=== PATIENT | female | born 1965 | race Hispanic/Latino ===

== ENCOUNTER → 2020-04-19 | Day surgery (SDC) | payer MEDICARE ==
[~2020-04-19] VITALS: Ht 152.4 cm; Wt 77.1 kg
[~2020-04-19] MED LIST: ALEN70TA65 PO; DEXL60CA2 PO; DILAUDID ONE; DIPRIVAN IV ONE; ETAN50PE3 SQ; FOLIC ACID; GABA800T5 PO; HYDR-3105 PO; LACTATED RINGERS 1,000 ML IV SCH; LASIX ONE; LISI1TAB39 PO; LUBI24CA7 PO; MIRA50TA PO; MORPHINE SULFATE ONE; NORCO 7.5MG PO ONE; NS 1000ML 1,000 ML IV SCH; ONDA-87 PO; PILO5TAB12 PO; PROM25TA10 PO; SUBLIMAZE ONE; TAMS-14 PO; TIZA4TAB2 PO; TOPI25TA8 PO; TRAM50TA PO; TRAZ-163 PO; VALA500T8 PO; VERSED ONE
[2020-04-19 08:51] VITALS: BP 95/68
[2020-04-19 10:25] LABS: BASOPHIL % 0.4 % (0.0-0.2); EOSINOPHIL # 0.1 10^3/uL (0.0-0.3); EOSINOPHIL % 1.6 % (0.0-5.0); LYMPHOCYTES # 3.19 10^3/uL1 (3.0-9.5); LYMPHOCYTES % 45.8 % (24.0-44.0); MEAN CORP HGB 30.8 pg (26-34); MONOCYTES # 0.6 10^3/uL (0.0-0.5); MONOCYTES % 7.9 % (5.0-12.0); NEUTROPHIL # 3.1 10^3/uL; NEUTROPHILS % 44.2 % (41.0-85.0); PLATELET COUNT 219 10^3/uL (150-400); RED CELL DISTRIBUTION WIDTH 11.9 % (11.5-14.5)
[2020-04-19 10:39] LABS: CALCIUM 9.3 mg/dL (8.4-10.5); CARBON DIOXIDE 25.3 mmol/L (20.0-32)
[2020-04-19 12:17] VITALS: BP 166/97
--- NOTE | 2020-04-19 12:21 | OPH ---
DATE OF SURGERY: 04/19/2020 PREOPERATIVE DIAGNOSIS: Right renal calculus. FINAL DIAGNOSIS: Right renal calculus. PROCEDURE: Right ESWL. DESCRIPTION OF PROCEDURE: The patient was brought to the lithotripsy room in supine position. A preop renal ultrasound was initially performed which revealed a calculus in the middle of the right kidney measuring 6.7 mm in diameter. There is no evidence of hydronephrosis, no cysts or masses noted. After the patient was given an LMA general anesthesia and after localization of the stone, we used an ultrasound, a right ESWL was then performed using a Dornier Compact Delta II lithotripter. A total of 1500 shockwaves were delivered to the stones in the right kidney under ultrasound guidance. After fragmentation of the stone as noted in the ultrasound, the procedure was terminated. The patient was then awakened, was transferred to the recovery room in stable condition. Talib Villatoro MD DR: CINDY/tito JOB# [id number]
[2020-04-19 12:27] VITALS: BP 162/103
[2020-04-19 12:36] VITALS: BP 134/103
[2020-04-19 12:37] VITALS: BP 149/89
[2020-04-19 13:00] VITALS: BP 110/73
--- NOTE | 2020-04-19 14:50 | PCM.EKG ---
[facility] Test Date: 2020-04-19 Test Time: 11:14:53 Pat Name: PARVEEN HILARIO Department: Room: Gender: F Distribution Engineer: FILOMENA CARRIZALES : 1965 Requested By: JASON KAUR Order Number: [id number] Reading MD: Measurements Intervals [place] Rate: 53 P: 43 MS: 130 QRS: 22 QRSD: 76 T: 34 QT: 462 QTc: 433 Interpretive Statements Sinus bradycardia No previous ECG available for comparison Please click the below link to view image of tracing.
== END | disposition home or self-care (01) ==
LOC: SDC 08:05 → EDSEX 08:05
PROVIDERS: ATTEND Urology
DX: N20.0 Calculus of kidney (principal); I10 Essential (primary) hypertension; R39.14 Feeling of incomplete bladder emptying; N39.3 Stress incontinence (female) (male); M19.90 Unspecified osteoarthritis, unspecified site; F41.9 Anxiety disorder, unspecified; F32.9 Major depressive disorder, single episode, unspecified; Z90.49 Acquired absence of other specified parts of digestive tract; Z90.710 Acquired absence of both cervix and uterus; Z98.890 Other specified postprocedural states; Z88.8 Allergy status to other drugs, medicaments and biological substances; Z79.899 Other long term (current) drug therapy; Z72.89 Other problems related to lifestyle; Z82.61 Family history of arthritis; Z83.3 Family history of diabetes mellitus; Z80.6 Family history of leukemia; Z79.02 Long term (current) use of antithrombotics/antiplatelets
CPT/HCPCS: 36415; 50590; 80048; 85025; 85610; 85730; 93005; J1170; J2250; J3010; J3490; J1940

== ENCOUNTER 2020-12-27 08:39 | Day surgery (SDC) | payer MEDICARE, MEDICAID ==
[~2020-12-27] VITALS: Ht 154.9 cm; Wt 77.1 kg
[2020-12-27] VITALS (11 sets, daily range): BP systolic 109–200; BP diastolic 69–133
[~2020-12-27 08:39] MED LIST changes: -ALEN70TA65 PO; +ALEN70TA76 PO; +DECADRON ONE; -DILAUDID ONE; +ESCI20TA8 PO; +LACTATED RINGERS 1,000 ML ONE; +LASIX IV ONE; -MORPHINE SULFATE ONE; -NORCO 7.5MG PO ONE; -NS 1000ML 1,000 ML IV SCH; +NS 1000ML 1,000 ML ONE; +OXYB5TAB10 PO; +TORADOL ONE; -VERSED ONE; +ZOFRAN ONE; +ZOLP5TAB PO
[2020-12-27 09:20] LABS: BASOPHIL % 0.4 % (0.0-0.2); EOSINOPHIL # 0.1 10^3/uL (0.0-0.2); EOSINOPHIL % 1.1 % (0.0-5.0); LYMPHOCYTES # 1.62 10^3/uL1 (1.0-4.8); LYMPHOCYTES % 29.1 % (24.0-44.0); MEAN CORP HGB 32.1 pg (26-34); MONOCYTES # 0.4 10^3/uL (0.3-0.8); MONOCYTES % 7.5 % (5.0-12.0); NEUTROPHIL # 3.5 10^3/uL (1.8-7.7); NEUTROPHILS % 61.9 % (41.0-85.0); PLATELET COUNT 193 10^3/uL (150-400); RED CELL DISTRIBUTION WIDTH 12.6 % (11.5-14.5)
[2020-12-27 09:39] LABS: CALCIUM 8.5 mg/dL (8.4-10.5); CARBON DIOXIDE 25.8 mmol/L (20.0-32)
[2020-12-27] MEDS ORDERED: DILAUDID ONE ×3 (10:43→13:50)
[2020-12-27] MEDS ORDERED: DILAUDID IV ONE (10:45)
[2020-12-27] MEDS ORDERED: TRAM50TA PO (12:51)
[2020-12-27] MEDS ORDERED: TAMS-14 PO (12:51)
[2020-12-27] MEDS ORDERED: DILAUDID IV PRN ×2 (13:00→14:00)
[2020-12-27] MEDS ORDERED: LACTATED RINGERS 1,000 ML IV SCH (13:00)
--- NOTE | 2020-12-27 13:29 | OPH ---
DATE OF SURGERY: 12/27/2020 DICTATOR NAME: Talib Villatoro MD PREOPERATIVE DIAGNOSIS: Right renal calculi. FINAL DIAGNOSIS: Right renal calculi. PROCEDURE: Right ESWL. DESCRIPTION OF PROCEDURE: The patient was brought to the lithotripsy room, was put in supine position on the lithotripsy table. A right preoperative renal ultrasound was initially performed, which revealed 2 stones in the middle pole of the right kidney, one measuring 1 cm in diameter and other one measures 5 mm in diameter. There is no evidence of hydronephrosis, no obstruction noted. After the patient was given an LMA general anesthesia and after localization of the stone with the use of an ultrasound and fluoroscopy, a right ESWL was then performed using a [employer]orn[employer] Compact Delta II lithotripter. A total of 2000 shockwaves were delivered to the stones in the middle pole of the right kidney under ultrasound guidance. After fragmentation of the stone as noted in the ultrasound, the procedure was terminated. The patient was awakened, was transferred to recovery room in stable condition. Talib Villatoro MD DR: MONICO TID: [id number] RECEIPT: [id number]
[2020-12-27] MEDS ORDERED: NS 1000ML 1,000 ML ONE (13:40)
== END 2020-12-27 14:45 | disposition home or self-care (01) ==
LOC: SDC 08:39
PROVIDERS: ATTEND Urology
DX: N20.0 Calculus of kidney (principal); I10 Essential (primary) hypertension; F41.9 Anxiety disorder, unspecified; M19.90 Unspecified osteoarthritis, unspecified site; F32.9 Major depressive disorder, single episode, unspecified; Z90.710 Acquired absence of both cervix and uterus; Z90.49 Acquired absence of other specified parts of digestive tract; Z98.890 Other specified postprocedural states; Z79.899 Other long term (current) drug therapy; Z79.01 Long term (current) use of anticoagulants; Z83.3 Family history of diabetes mellitus; Z82.61 Family history of arthritis
CPT/HCPCS: 36415; 50590; 80048; 85025; 85610; 85730; J1100; J1170 ×3; J1885; J2405; J3010; J3490; J7030 ×2; J7120; J1940

== ENCOUNTER → 2021-01-24 | Day surgery (SDC) | payer MEDICARE, MEDICAID ==
[~2021-01-24] VITALS: Ht 154.9 cm; Wt 77.1 kg
[2021-01-24] VITALS (10 sets, daily range): BP systolic 121–174; BP diastolic 70–95
[~2021-01-24] MED LIST changes: +DILAUDID IV PRN; -LACTATED RINGERS 1,000 ML ONE; -NS 1000ML 1,000 ML ONE; +SUBLIMAZE IV ONE; +XYLOCAINE 2% 5ML VIAL ONE
--- NOTE | 2021-01-24 09:34 | PCM.EKG ---
[facility] Test Date: 2021-01-24 Test Time: 08:12:38 Pat Name: PARVEEN HILARIO Department: Patient ID: [facility]-[id number] Room: Gender: F Treatment Technician: ALYCIA VALDES : 1965 Requested By: JASON KAUR Order Number: [id number] Reading MD: Carl Finley Measurements Intervals [place] Rate: 49 P: 52 GA: 144 QRS: 45 QRSD: 66 T: 46 QT: 476 QTc: 429 Interpretive Statements Marked sinus bradycardia Low voltage QRS Compared to ECG 04/19/2020 11:14:53 Low QRS voltage now present Electronically Signed On 01-26-2021 6:19:47 CDT by Carl Finley Please click the below link to view image of tracing.
--- NOTE | 2021-01-24 10:37 | OPH ---
DATE OF SURGERY: 01/24/2021 DICTATOR NAME: Talib Villatoro MD PREOPERATIVE DIAGNOSIS: Left renal calculi. FINAL DIAGNOSIS: Left renal calculi. PROCEDURE: Left ESWL. DESCRIPTION OF PROCEDURE: The patient was brought to the lithotripsy room, was placed in supine position on the lithotripsy table. A left preoperative renal ultrasound was initially performed, which revealed 2 stones in the middle pole of the left kidney measuring 7.5 and 3.4 mm in diameter respectively. There is no evidence of hydronephrosis, no cysts or masses noted. After the patient was given an LMA general anesthesia and after localization of the stone with the use of an ultrasound and fluoroscopy, a left ESWL was then performed using a Dornier Compact Delta II lithotripter. A total of 1500 shockwaves were delivered to the stones in the middle pole of the left kidney under ultrasound guidance. After fragmentation of the stone as noted in the ultrasound, procedure was terminated. The patient was awakened, was transferred to the recovery room in stable condition. Talib Villatoro MD DR: STEPHEN TID: [id number] RECEIPT: [id number]
== END | disposition home or self-care (01) ==
LOC: SDC 07:49
PROVIDERS: ATTEND Urology
DX: N20.0 Calculus of kidney (principal); I10 Essential (primary) hypertension; F41.9 Anxiety disorder, unspecified; F32.9 Major depressive disorder, single episode, unspecified; M19.90 Unspecified osteoarthritis, unspecified site; Z79.899 Other long term (current) drug therapy; Z98.890 Other specified postprocedural states; Z90.710 Acquired absence of both cervix and uterus; Z90.49 Acquired absence of other specified parts of digestive tract; Z82.49 Family history of ischemic heart disease and other diseases of the circulatory system; Z83.3 Family history of diabetes mellitus; Z82.61 Family history of arthritis; Z80.7 Family history of other malignant neoplasms of lymphoid, hematopoietic and related tissues; Z72.89 Other problems related to lifestyle
CPT/HCPCS: 50590; 93005; J1100; J1885; J2001; J2405; J3010 ×2; J3490; J1940

== ENCOUNTER → 2021-07-31 | Outpatient (CLI) | payer MEDICARE, MEDICAID ==
[~2021-07-31] MED LIST changes: -DECADRON ONE; -DILAUDID IV PRN; -DIPRIVAN IV ONE; -LACTATED RINGERS 1,000 ML IV SCH; -LASIX IV ONE; -LASIX ONE; -SUBLIMAZE IV ONE; -SUBLIMAZE ONE; +TIZA-113 PO; -TIZA4TAB2 PO; -TORADOL ONE; -XYLOCAINE 2% 5ML VIAL ONE; -ZOFRAN ONE
== END | disposition home or self-care (01) ==
LOC: NPLAB 17:17
PROVIDERS: ATTEND Urology
DX: N39.0 Urinary tract infection, site not specified (principal)
CPT/HCPCS: 87086